=== PATIENT | male | born 1935 | race African-American/Black ===

== ENCOUNTER 2025-01-21 09:04 | Inpatient (IN) | payer BC, MEDICAID, MEDICARE ==
[~2025-01-21] VITALS: Ht 167.6 cm; Wt 63.0 kg
[2025-01-21] MEDS: SODIUM CHLORIDE 0.9% (SEPSIS BOLUS) IV ONE (09:32)
[2025-01-21] MEDS: CEFTRIAXONE 1GM/50ML 50 ML IV ONE (09:38)
[2025-01-21 09:55] LABS: HEMATOCRIT. 39.8 % (42.0-52.0); HEMOGLOBIN. 12.9 g/dL (14.0-18.0); MEAN PLATELET VOLUME 9.3 fl (7.4-10.4); PLATELET 381 x1000/uL (130-400); RED BLOOD CELL COUNT 4.14 mill/uL (4.7-6.1); RED CELL DISTRIBUTION WIDTH 14.1 % (11.6-14.6)
[2025-01-21 10:04] LABS: INR 1.1
[2025-01-21 10:12] LABS: ASPARTATE AMINOTRANSFERASE 9 IU/L (<34); BILIRUBIN DIRECT 0.2 mg/dL (<=3.0); BILIRUBIN TOTAL 0.4 mg/dL (0.1-1.0); PROTEIN TOTAL 7.0 g/dL (6.0-8.3)
[2025-01-21 10:39] LABS: TROPONIN I HIGH SENSITIVITY 69 ng/L (3.0-53)
[2025-01-21 10:41] LABS: UREA NITROGEN BLOOD 125 mg/dL (9-23)
[2025-01-21 10:42] LABS: CREATININE 7.4 mg/dL (0.6-1.3)
[2025-01-21 10:50] LABS: BAND% 5.0 % (1.0-6.0); LYMPHOCYTES % MANUAL 12.0 % (20.0-50.0); MONOCYTES % MANUAL 11.0 % (2.0-8.0); NEUTROPHILS % MANUAL 72.0 % (45.0-75.0); PLATELET ESTIMATE NORMAL
[2025-01-21] MEDS: CLOPIDOGREL 75MG TABLET PO ONE (11:20)
[2025-01-21] MEDS: ASPIRIN 325MG EC TABLET PO ONE (11:20)
[2025-01-21] MEDS ORDERED: HEPARIN 5000 UNITS/ML VIAL IV PRN ×2 (11:45)
[2025-01-21] MEDS ORDERED: HEPARIN 25,000 UNITS PREMIX 250 ML IV PRN (11:45)
[2025-01-21] MEDS: ONDANSETRON HCL 4MG/2ML INJ IV ONE (12:30)
[2025-01-21] MEDS: HEPARIN 60 UNITS/KG BOLUS IV SCH (13:00)
[2025-01-21] MEDS: HEPARIN 5000 UNITS/ML VIAL IV SCH (13:27)
[2025-01-21] MEDS: IOHEXOL-350 100 ML BOTTLE ONE (13:46)
[2025-01-21] MEDS: HEPARIN 25,000 UNITS PREMIX 250 ML IV SCH (13:46)
[2025-01-21 15:57] LABS: CLARITY URINE CLEAR (CLEAR); COLOR URINE YELLOW (YELLOW); GLUCOSE URINE NEGATIVE (NEGATIVE); KETONES URINE NEGATIVE (NEGATIVE); PH URINE 5.0 (4.5-8.0); PROTEIN URINE 1+ (NEGATIVE); SPECIFIC GRAVITY URINE 1.023 (1.005-1.030)
[2025-01-21 15:58] LABS: LEUKOCYTE ESTERASE URINE NEGATIVE (NEGATIVE); NITRITE URINE NEGATIVE (NEGATIVE); OCCULT BLOOD URINE TRACE (NEGATIVE); UROBILINOGEN URINE 0.2 E.U./dL (0.2-1.0); WBC URINE 0-2 /hpf (0-2)
[2025-01-21 15:59] LABS: BACTERIA URINE RARE; SQUAMOUS EPITHELIAL CELL URINE RARE /lpf (RARE/1+)
[2025-01-21] MEDS ORDERED: HEPARIN BOLUS PRN aPTT <30 IV (19:00)
[2025-01-21] MEDS ORDERED: HEPARIN BOLUS PRN aPTT 30-44 IV (19:00)
[2025-01-21] MEDS ORDERED: HEPARIN 25,000 UNITS in DEXT 5% WATER 245 ML IV SCH (23:00)
[2025-01-21] MEDS: ONDANSETRON HCL 4MG/2ML INJ IV PRN (23:13)
[2025-01-21] MEDS: MORPHINE SULFATE 4 MG/ML INJ (FOR IV/IM USE) IV PRN (23:14)
[2025-01-21] MEDS: SODIUM CHLORIDE 0.9% 1,000 ML IV SCH (23:25)
[2025-01-22] VITALS (7 sets, daily range): BP systolic 105–125; BP diastolic 56–65; PULSE 77–95; RESP 16–20; TEMP 36.1–36.6; O2SAT 93–99
[2025-01-22 06:12] LABS: HEMATOCRIT. 38.9 % (42.0-52.0); HEMOGLOBIN. 12.7 g/dL (14.0-18.0); MEAN PLATELET VOLUME 9.5 fl (7.4-10.4); PLATELET 378 x1000/uL (130-400); RED BLOOD CELL COUNT 4.06 mill/uL (4.7-6.1); RED CELL DISTRIBUTION WIDTH 14.0 % (11.6-14.6)
[2025-01-22 06:34] LABS: CREATININE 6.9 mg/dL (0.6-1.3); UREA NITROGEN BLOOD 132.0 mg/dL (9-23)
[2025-01-22] MEDS: PANTOPRAZOLE 40MG DR TABLET PO SCH (07:40)
[2025-01-22] MEDS ORDERED: CEFEPIME 1GM IN DEXT 5% 50ML IV SCH (17:15)
[2025-01-22] MEDS: METRONIDAZOLE 500 MG PREMIX 100 ML IV SCH (18:30)
[2025-01-22] MEDS: DEXT 5%/0.9% NACL 1,000 ML IV SCH (19:38)
[2025-01-22] MEDS: CEFEPIME 1GM PREMIX 50ML IV SCH (19:49)
[2025-01-22 21:09] LABS: LYMPHOCYTES % MANUAL 5.0 % (20.0-50.0); MONOCYTES % MANUAL 8.0 % (2.0-8.0); NEUTROPHILS % MANUAL 87.0 % (45.0-75.0); PLATELET ESTIMATE NORMAL
[2025-01-23 00:08] VITALS: BP 102/53; PULSE 86; RESP 18; TEMP 36.1; O2SAT 96
[2025-01-23 03:59] VITALS: BP 102/53; PULSE 90; RESP 18; TEMP 36.2; O2SAT 90
[2025-01-23 07:52] VITALS: BP 125/67; PULSE 89; RESP 20; TEMP 36.1; O2SAT 97
[2025-01-23] MEDS: PANTOPRAZOLE SODIUM 40 MG/VIAL IV SCH (08:37)
[2025-01-23 12:08] VITALS: BP 107/56; PULSE 86; RESP 19; TEMP 36.2; O2SAT 99
[2025-01-23 15:53] VITALS: BP 103/61; PULSE 91; RESP 19; TEMP 36.1; O2SAT 99
[2025-01-23 20:00] VITALS: BP 102/56; PULSE 90; RESP 18; TEMP 36.5; O2SAT 95
[2025-01-24] VITALS: BP 125/68; PULSE 77; RESP 18; TEMP 36.6; O2SAT 97
[2025-01-24 04:00] VITALS: BP 98/59; PULSE 87; RESP 17; TEMP 36.1; O2SAT 96
[2025-01-24 08:08] VITALS: BP 133/58; PULSE 84; RESP 18; TEMP 35.7; O2SAT 100
[2025-01-24 08:29] LABS: HEMATOCRIT. 35.2 % (42.0-52.0); HEMOGLOBIN. 11.4 g/dL (14.0-18.0); MEAN PLATELET VOLUME 9.3 fl (7.4-10.4); PLATELET 337 x1000/uL (130-400); RED BLOOD CELL COUNT 3.66 mill/uL (4.7-6.1); RED CELL DISTRIBUTION WIDTH 14.4 % (11.6-14.6)
[2025-01-24] MEDS ORDERED: LIDOCAINE HCL 1% 10 MG/ML 10ML VIAL ONE (08:35)
[2025-01-24 12:04] VITALS: BP 144/63; PULSE 70; RESP 19; TEMP 36.2; O2SAT 100
[2025-01-24 13:01] LABS: CREATININE 4.8 mg/dL (0.6-1.3); UREA NITROGEN BLOOD 135.0 mg/dL (9-23)
[2025-01-24 15:49] VITALS: BP 115/68; PULSE 84; RESP 20; TEMP 36.2; O2SAT 100
[2025-01-24 20:00] VITALS: BP 142/86; PULSE 101; RESP 20; TEMP 36.2; O2SAT 98
[2025-01-25 00:10] VITALS: BP 129/71; PULSE 82; RESP 20; TEMP 36.3; O2SAT 98
[2025-01-25 04:00] VITALS: BP 133/85; PULSE 90; RESP 20; TEMP 36; O2SAT 97
[2025-01-25 08:01] VITALS: BP 131/83; PULSE 99; RESP 18; TEMP 36.2; O2SAT 98
[2025-01-25 12:00] VITALS: BP 133/75; PULSE 97; RESP 15; TEMP 36.1; O2SAT 98
[2025-01-25 16:00] VITALS: BP 147/62; PULSE 93; RESP 17; TEMP 36.2; O2SAT 99
[2025-01-25 16:50] LABS: LYMPHOCYTES % MANUAL 14.0 % (20.0-50.0); MONOCYTES % MANUAL 8.0 % (2.0-8.0); NEUTROPHILS % MANUAL 78.0 % (45.0-75.0); PLATELET ESTIMATE NORMAL
[2025-01-25 17:21] LABS: CREATININE 3.3 mg/dL (0.6-1.3); UREA NITROGEN BLOOD 104.0 mg/dL (9-23)
[2025-01-25] MEDS: DEXTROSE 5% WATER 1,000 ML IV SCH (17:50)
[2025-01-25 20:00] VITALS: BP 131/76; PULSE 95; RESP 20; TEMP 36.2; O2SAT 97
[2025-01-26] VITALS: BP 133/102; PULSE 105; RESP 20; TEMP 36.6; O2SAT 97
[2025-01-26 04:00] VITALS: BP 142/77; PULSE 101; RESP 20; TEMP 36.3; O2SAT 96
[2025-01-26 08:00] VITALS: BP 122/78; PULSE 98; RESP 20; TEMP 30.6; O2SAT 100
[2025-01-26 12:00] VITALS: BP 127/77; PULSE 97; RESP 18; TEMP 36.1; O2SAT 99
[2025-01-26 16:00] VITALS: BP 130/75; PULSE 97; RESP 20; TEMP 36.1; O2SAT 100
[2025-01-26 20:04] VITALS: BP 125/90; PULSE 95; RESP 18; TEMP 36.2; O2SAT 99
[2025-01-27 00:14] VITALS: BP 103/69; PULSE 106; RESP 18; TEMP 36.2; O2SAT 96
[2025-01-27] MEDS: METOCLOPRAMIDE HCL 10MG/2ML VIAL IV NR (03:08)
[2025-01-27 04:31] VITALS: BP 119/75; PULSE 105; RESP 18; TEMP 36.4; O2SAT 95
[2025-01-27 08:00] VITALS: BP 136/69; PULSE 69; RESP 18; TEMP 36.6; O2SAT 98
[2025-01-27 08:21] LABS: HEMATOCRIT. 35.8 % (42.0-52.0); HEMOGLOBIN. 11.0 g/dL (14.0-18.0); MEAN PLATELET VOLUME 9.1 fl (7.4-10.4); PLATELET 277 x1000/uL (130-400); RED BLOOD CELL COUNT 3.58 mill/uL (4.7-6.1); RED CELL DISTRIBUTION WIDTH 15.1 % (11.6-14.6)
[2025-01-27 08:41] LABS: CREATININE 2.6 mg/dL (0.6-1.3); UREA NITROGEN BLOOD 61.0 mg/dL (9-23)
[2025-01-27] MEDS: KCL 20MEQ/100ML PREMIX 100 ML IV SCH (11:35)
[2025-01-27 12:00] VITALS: BP 102/67; PULSE 99; RESP 18; TEMP 36.7; O2SAT 98
[2025-01-27 16:00] VITALS: BP 130/95; PULSE 89; RESP 18; TEMP 36.1; O2SAT 100
[2025-01-27 20:00] VITALS: BP 113/65; PULSE 104; RESP 18; TEMP 36.8; O2SAT 95
[2025-01-28] VITALS: BP 118/62; PULSE 100; RESP 18; TEMP 36.9; O2SAT 96
[2025-01-28 04:00] VITALS: BP 123/72; PULSE 100; RESP 20; TEMP 36.9; O2SAT 98
[2025-01-28 07:46] VITALS: BP 108/68; PULSE 94; RESP 20; TEMP 36.3; O2SAT 96
[2025-01-28 11:56] VITALS: BP 100/51; PULSE 89; RESP 18; TEMP 36.3; O2SAT 95
[2025-01-28 12:53] LABS: LYMPHOCYTES % MANUAL 2.0 % (20.0-50.0); MONOCYTES % MANUAL 5.0 % (2.0-8.0); NEUTROPHILS % MANUAL 93.0 % (45.0-75.0)
[2025-01-28 12:54] LABS: PLATELET ESTIMATE NORMAL
[2025-01-28 13:10] LABS: HEMATOCRIT. 38.0 % (42.0-52.0); HEMOGLOBIN. 11.9 g/dL (14.0-18.0); MEAN PLATELET VOLUME 9.2 fl (7.4-10.4); PLATELET 181 x1000/uL (130-400); RED BLOOD CELL COUNT 3.87 mill/uL (4.7-6.1); RED CELL DISTRIBUTION WIDTH 15.5 % (11.6-14.6)
[2025-01-28 13:42] LABS: CREATININE 2.6 mg/dL (0.6-1.3); UREA NITROGEN BLOOD 99.0 mg/dL (9-23)
[2025-01-28] MEDS: POTASSIUM CHLORIDE 40 MEQ in DEXTROSE 5% WATER 980 ML IV SCH (14:31)
[2025-01-28 16:11] VITALS: BP 113/72; PULSE 95; RESP 19; TEMP 36.1; O2SAT 95
[2025-01-28] MEDS: KCL 10MEQ/50ML PREMIX 50 ML IV SCH (16:49)
[2025-01-28 20:00] VITALS: BP 118/70; PULSE 97; RESP 19; TEMP 36.4; O2SAT 92
[2025-01-28 20:13] LABS: LYMPHOCYTES % MANUAL 4.0 % (20.0-50.0); MONOCYTES % MANUAL 7.0 % (2.0-8.0); NEUTROPHILS % MANUAL 89.0 % (45.0-75.0)
[2025-01-28 20:14] LABS: PLATELET ESTIMATE NORMAL
[2025-01-29] VITALS: BP 89/60; PULSE 64; RESP 17; TEMP 36.2; O2SAT 95
[2025-01-29 04:00] VITALS: BP 90/49; PULSE 69; RESP 17; TEMP 36.8; O2SAT 96
[2025-01-29 05:44] LABS: HEMATOCRIT. 35.6 % (42.0-52.0); HEMOGLOBIN. 11.4 g/dL (14.0-18.0); MEAN PLATELET VOLUME 9.1 fl (7.4-10.4); PLATELET 173 x1000/uL (130-400); RED BLOOD CELL COUNT 3.70 mill/uL (4.7-6.1); RED CELL DISTRIBUTION WIDTH 14.9 % (11.6-14.6)
[2025-01-29 05:54] LABS: CREATININE 2.5 mg/dL (0.6-1.3)
[2025-01-29 06:27] LABS: UREA NITROGEN BLOOD 108.0 mg/dL (9-23)
[2025-01-29 07:42] VITALS: BP 131/74; PULSE 87; RESP 18; TEMP 36.1; O2SAT 94
[2025-01-29] MEDS: KCL 10MEQ/50ML PREMIX 50 ML IV SCH (09:37)
[2025-01-29 11:35] VITALS: BP 112/67; PULSE 82; RESP 20; TEMP 36.3; O2SAT 94
[2025-01-29 15:51] VITALS: BP 117/67; PULSE 86; RESP 19; TEMP 36.1; O2SAT 93
[2025-01-29 17:19] LABS: LYMPHOCYTES % MANUAL 3.0 % (20.0-50.0); MONOCYTES % MANUAL 8.0 % (2.0-8.0); NEUTROPHILS % MANUAL 89.0 % (45.0-75.0); PLATELET ESTIMATE NORMAL
[2025-01-29 20:00] VITALS: BP 109/41; PULSE 84; RESP 20; TEMP 36.6; O2SAT 94
[2025-01-29] MEDS ORDERED: CEFAZOLIN 1000MG PREMIX 50 ML IV SCH (20:20)
[2025-01-29] MEDS: PIPERACILLIN/TAZO 3.375G/50ML 50 ML IV SCH (21:48)
[2025-01-30] VITALS: BP 131/43; PULSE 91; RESP 19; TEMP 35.6; O2SAT 95
[2025-01-30 04:00] VITALS: BP 118/69; PULSE 70; RESP 18; TEMP 35.7; O2SAT 96
[2025-01-30 06:52] LABS: HEMATOCRIT. 34.5 % (42.0-52.0); HEMOGLOBIN. 11.0 g/dL (14.0-18.0); MEAN PLATELET VOLUME 9.8 fl (7.4-10.4); PLATELET 157 x1000/uL (130-400); RED BLOOD CELL COUNT 3.53 mill/uL (4.7-6.1); RED CELL DISTRIBUTION WIDTH 15.3 % (11.6-14.6)
[2025-01-30 06:54] LABS: CREATININE 2.8 mg/dL (0.6-1.3)
[2025-01-30 06:55] LABS: ASPARTATE AMINOTRANSFERASE 26 IU/L (<34)
[2025-01-30 06:56] LABS: BILIRUBIN TOTAL 0.4 mg/dL (0.1-1.0); PROTEIN TOTAL 5.9 g/dL (6.0-8.3)
[2025-01-30 07:25] LABS: INR 1.5
[2025-01-30 07:36] VITALS: BP 114/63; PULSE 79; RESP 18; TEMP 36.1; O2SAT 93
[2025-01-30 07:48] LABS: UREA NITROGEN BLOOD 102 mg/dL (9-23)
[2025-01-30 12:00] VITALS: BP 100/64; PULSE 70; RESP 18; TEMP 36.1; O2SAT 92
[2025-01-30 15:29] VITALS: BP 124/62; PULSE 77; RESP 20; TEMP 35.8; O2SAT 99
[2025-01-30 16:54] LABS: EOSINOPHILS % MANUAL 2.0 % (0.0-5.0); LYMPHOCYTES % MANUAL 8.0 % (20.0-50.0); MONOCYTES % MANUAL 6.0 % (2.0-8.0); NEUTROPHILS % MANUAL 84.0 % (45.0-75.0); PLATELET ESTIMATE NORMAL
[2025-01-30 19:25] LABS: CREATININE 3.0 mg/dL (0.6-1.3)
[2025-01-30 20:00] VITALS: BP_SYST 115; BP_DIAS 5; BP_DIAS 65; PULSE 79; RESP 18; TEMP 36; O2SAT 99
[2025-01-30 20:04] LABS: UREA NITROGEN BLOOD 108.0 mg/dL (9-23)
[2025-01-31] VITALS: BP 107/49; PULSE 72; RESP 18; TEMP 35.6; O2SAT 96
[2025-01-31 04:00] VITALS: BP 91/61; PULSE 75; RESP 20; TEMP 36.6; O2SAT 96
[2025-01-31 08:00] VITALS: BP 107/67; PULSE 74; RESP 16; TEMP 37; O2SAT 95
[2025-01-31] MEDS ORDERED: PROPOFOL 200MG/20ML VIAL IV ONE (08:00)
[2025-01-31 08:51] LABS: INR 1.5
[2025-01-31 09:10] LABS: HEMATOCRIT. 33.4 % (42.0-52.0); HEMOGLOBIN. 10.8 g/dL (14.0-18.0); MEAN PLATELET VOLUME 10.1 fl (7.4-10.4); PLATELET 131 x1000/uL (130-400); RED BLOOD CELL COUNT 3.50 mill/uL (4.7-6.1); RED CELL DISTRIBUTION WIDTH 15.0 % (11.6-14.6)
[2025-01-31 09:53] LABS: CREATININE 3.2 mg/dL (0.6-1.3)
[2025-01-31 10:01] LABS: UREA NITROGEN BLOOD 128.0 mg/dL (9-23)
[2025-01-31 12:00] VITALS: BP 104/74; PULSE 64; RESP 17; TEMP 36.7; O2SAT 91
[2025-01-31 16:00] VITALS: BP 107/49; PULSE 93; RESP 18; TEMP 36.7; O2SAT 93
[2025-01-31 20:00] VITALS: BP 100/45; PULSE 67; RESP 18; TEMP 36; O2SAT 93
[2025-01-31 21:24] LABS: EOSINOPHILS % MANUAL 1.0 % (0.0-5.0); LYMPHOCYTES % MANUAL 6.0 % (20.0-50.0); MONOCYTES % MANUAL 4.0 % (2.0-8.0); NEUTROPHILS % MANUAL 89.0 % (45.0-75.0); PLATELET ESTIMATE NORMAL
[2025-02-01] VITALS (60 sets, daily range): BP systolic 37–155; BP diastolic 23–96; PULSE 48–120; RESP 18–34; TEMP 36–36.8; O2SAT 93–100
[2025-02-01] MEDS: SODIUM CHLORIDE 0.9% 1,000 ML IV ONE (00:50)
[2025-02-01] MEDS: LORAZEPAM 2MG/ML UD SYRINGE IV PRN (02:09)
[2025-02-01 06:40] LABS: HEMATOCRIT. 33.3 % (42.0-52.0); HEMOGLOBIN. 10.6 g/dL (14.0-18.0); MEAN PLATELET VOLUME 10.1 fl (7.4-10.4); PLATELET 99 x1000/uL (130-400); RED BLOOD CELL COUNT 3.42 mill/uL (4.7-6.1); RED CELL DISTRIBUTION WIDTH 15.2 % (11.6-14.6)
[2025-02-01 07:35] LABS: CREATININE 3.4 mg/dL (0.6-1.3); UREA NITROGEN BLOOD 94.0 mg/dL (9-23)
[2025-02-01 10:08] LABS: PROSTATE SPECIFIC AG TOTAL 6.1 ng/mL (0.0-4.0)
[2025-02-01 13:08] LABS: ALPHA FETOPROTEIN TUMOR MARKER 4.3 ng/mL (0.0-6.4); CA 19-9 15.0 U/mL (0-35); CARCINOEMBRYONIC AG - SEND OUT 1.7 ng/mL (0.0-4.7)
[2025-02-01 13:14] LABS: INR 1.6
[2025-02-01 13:18] LABS: HEMATOCRIT. 36.4 % (42.0-52.0); HEMOGLOBIN. 11.4 g/dL (14.0-18.0); MEAN PLATELET VOLUME 10.5 fl (7.4-10.4); PLATELET 102 x1000/uL (130-400); RED BLOOD CELL COUNT 3.69 mill/uL (4.7-6.1); RED CELL DISTRIBUTION WIDTH 15.8 % (11.6-14.6)
[2025-02-01 13:23] LABS: ASPARTATE AMINOTRANSFERASE 54 IU/L (<34)
[2025-02-01 13:24] LABS: BILIRUBIN DIRECT 0.2 mg/dL (<=3.0); BILIRUBIN TOTAL 0.4 mg/dL (0.1-1.0); PROTEIN TOTAL 5.2 g/dL (6.0-8.3)
[2025-02-01 13:40] LABS: BG BASE EXCESS -7.0 mmol/L (-2.0-3.0); BG CARBOXYHEMOGLOBIN 0.1 % (0.5-1.5); BG DEOXYHEMOGLOBIN 14.5 % (0.0-5.0); BG FRACTION INSPIRED OXYGEN 100; BG HCO3 ACT 20.3 mmol/L (21.0-28.0); BG METHEMOGLOBIN 0.3 % (0.5-1.5); BG OXYGEN SATURATION 85.4 % (94.0-98.0); BG OXYHEMOGLOBIN 85.1 % (94.0-98.0); BG PCO2 47.8 mmHg (35.0-48.0); BG PEEP (cmH2O) 5.0 cmH2O; BG PH 7.245 (7.350-7.450); BG PO2 59.1 mmHg (83.0-108.0); BG SAMPLE SITE RIGHT RADIAL; BG TIDAL VOLUME(mL) 400.0 mL; BG TOTAL HEMOGLOBIN 12.7 g/dL (13.5-17.5); BG VENT MODE VENT - AC; BG VENT RATE 22.0 set
[2025-02-01] MEDS: DEXTROSE 5% WATER 1,000 ML IV SCH (14:34)
[2025-02-01] MEDS: PHYTONADIONE 10MG/ML INJ SUBCUT SCH (14:35)
[2025-02-01] MEDS: SODIUM BICARBONATE 8.4% 50MEQ/50ML SYR IV SCH (14:35)
[2025-02-01 15:43] LABS: EOSINOPHILS % MANUAL 2.0 % (0.0-5.0); LYMPHOCYTES % MANUAL 2.0 % (20.0-50.0); MONOCYTES % MANUAL 1.0 % (2.0-8.0); NEUTROPHILS % MANUAL 95.0 % (45.0-75.0); PLATELET ESTIMATE SLIGHTLY DECREASED
[2025-02-01 16:37] LABS: BG BASE EXCESS -0.7 mmol/L (-2.0-3.0); BG CARBOXYHEMOGLOBIN 0.3 % (0.5-1.5); BG DEOXYHEMOGLOBIN 7.7 % (0.0-5.0); BG FRACTION INSPIRED OXYGEN 100; BG HCO3 ACT 24.1 mmol/L (21.0-28.0); BG METHEMOGLOBIN 0.3 % (0.5-1.5); BG OXYGEN SATURATION 92.3 % (94.0-98.0); BG OXYHEMOGLOBIN 91.7 % (94.0-98.0); BG PCO2 40.2 mmHg (35.0-48.0); BG PEEP (cmH2O) 5.0 cmH2O; BG PH 7.396 (7.350-7.450); BG PO2 66.3 mmHg (83.0-108.0); BG SAMPLE SITE RIGHT RADIAL; BG TIDAL VOLUME(mL) 450.0 mL; BG TOTAL HEMOGLOBIN 11.6 g/dL (13.5-17.5); BG VENT MODE VENT - AC; BG VENT RATE 22.0 set
[2025-02-01 16:51] LABS: LYMPHOCYTES % MANUAL 5.0 % (20.0-50.0); MONOCYTES % MANUAL 3.0 % (2.0-8.0); NEUTROPHILS % MANUAL 92.0 % (45.0-75.0); PLATELET ESTIMATE SLIGHTLY DECREASED
[2025-02-01] MEDS: METOCLOPRAMIDE HCL 10MG/2ML VIAL IV SCH (17:55)
[2025-02-01] MEDS: FENTANYL 2500MCG/250ML PMX 250 ML IV PRN (20:40)
[2025-02-01] MEDS: NOREPINEPHRINE 8MG/250ML PMX 250 ML IV PRN (21:12)
[2025-02-01] MEDS: VANCOMYCIN 1.25GM/250ML IV SCH (21:56)
[2025-02-02] VITALS (114 sets, daily range): BP systolic 59–144; BP diastolic 29–106; PULSE 47–112; RESP 12–40; TEMP 30.1–36.8; O2SAT 83–100
[2025-02-02] MEDS: DEXMEDETOMIDINE 100 ML IV PRN (00:46)
[2025-02-02] MEDS: PHENYLEPHRINE 50 MG in DEXT 5% WATER 245 ML IV PRN (00:47)
[2025-02-02 05:40] LABS: PLATELET 58 x1000/uL (130-400); RED BLOOD CELL COUNT 3.56 mill/uL (4.7-6.1); RED CELL DISTRIBUTION WIDTH 15.8 % (11.6-14.6)
[2025-02-02 05:58] LABS: CREATININE 3.6 mg/dL (0.6-1.3)
[2025-02-02 06:04] LABS: UREA NITROGEN BLOOD 119.0 mg/dL (9-23)
[2025-02-02 11:43] LABS: BG BASE EXCESS -7.0 mmol/L (-2.0-3.0); BG CARBOXYHEMOGLOBIN 0.8 % (0.5-1.5); BG DEOXYHEMOGLOBIN 10.7 % (0.0-5.0); BG FRACTION INSPIRED OXYGEN 60; BG HCO3 ACT 17.3 mmol/L (21.0-28.0); BG METHEMOGLOBIN 0.3 % (0.5-1.5); BG OXYGEN SATURATION 89.2 % (94.0-98.0); BG OXYHEMOGLOBIN 88.2 % (94.0-98.0); BG PCO2 30.8 mmHg (35.0-48.0); BG PEEP (cmH2O) 5.0 cmH2O; BG PH 7.368 (7.350-7.450); BG PO2 57.2 mmHg (83.0-108.0); BG SAMPLE SITE RIGHT FEMORAL; BG TIDAL VOLUME(mL) 450.0 mL; BG TOTAL HEMOGLOBIN 10.8 g/dL (13.5-17.5); BG VENT MODE VENT - AC; BG VENT RATE 22.0 set
[2025-02-02 12:40] LABS: INR 1.5
[2025-02-02] MEDS: VASOPRESSIN 20 UNIT in SODIUM CHLORIDE 0.9% 99 ML IV PRN (15:18)
[2025-02-02] MEDS: NOREPINEPHRINE 32 MG in DEXT 5% WATER 218 ML IV PRN (16:11)
[2025-02-02] MEDS: EPINEPHRINE 5 MG in SODIUM CHLORIDE 0.9% 245 ML IV PRN (16:17)
[2025-02-02] MEDS: MEROPENEM 500MG/50ML 50 ML IV SCH (17:06)
[2025-02-02] MEDS ORDERED: DOPAMINE 400MG/250ML PREMIX 250 ML IV PRN (19:00)
[2025-02-02] MEDS: EPINEPHRINE 10 MG in SODIUM CHLORIDE 0.9% 240 ML IV PRN (20:54)
[2025-02-02] MEDS: DOPAMINE 800MG PREMIX (DOUBLE) 250 ML IV PRN (23:02)
[2025-02-03] VITALS (59 sets, daily range): BP systolic 70–115; BP diastolic 11–76; PULSE 0–109; RESP 0–63; TEMP 34.3–36.3; O2SAT 62–100
[2025-02-03] MEDS: HYDROCORTISONE SOD SUCCINATE 100 MG/2 ML VIAL IV SCH (00:02)
[2025-02-03] MEDS: PHENYLEPHRINE 100 MG in DEXT 5% WATER 240 ML IV PRN (01:13)
[2025-02-03] MEDS: EPINEPHRINE 20 MG in SODIUM CHLORIDE 0.9% 480 ML IV PRN (05:53)
[2025-02-03 06:03] LABS: INR 2.7
[2025-02-03 09:33] LABS: BG BASE EXCESS -27.9 mmol/L (-2.0-3.0); BG CARBOXYHEMOGLOBIN 1.1 % (0.5-1.5); BG DEOXYHEMOGLOBIN 1.3 % (0.0-5.0); BG FRACTION INSPIRED OXYGEN 100; BG HCO3 ACT 3.7 mmol/L (21.0-28.0); BG METHEMOGLOBIN 0.2 % (0.5-1.5); BG OXYGEN SATURATION 98.7 % (94.0-98.0); BG OXYHEMOGLOBIN 97.4 % (94.0-98.0); BG PCO2 21.2 mmHg (35.0-48.0); BG PEEP (cmH2O) 5.0 cmH2O; BG PH 6.857 (7.350-7.450); BG PO2 222.1 mmHg (83.0-108.0); BG SAMPLE SITE LEFT FEMORAL; BG TIDAL VOLUME(mL) 450.0 mL; BG TOTAL HEMOGLOBIN 7.5 g/dL (13.5-17.5); BG VENT MODE VENT - AC; BG VENT RATE 22.0 set
[2025-02-03] MEDS: SODIUM BICARBONATE 8.4% 50MEQ/50ML SYR IV NR (10:07)
[2025-02-03] MEDS: DEXTROSE 5% WATER 1,000 ML IV SCH (10:26)
[2025-02-03 12:32] LABS: HEMATOCRIT. 47.7 % (42.0-52.0); HEMOGLOBIN. 11.2 g/dL (14.0-18.0); MEAN PLATELET VOLUME 11.6 fl (7.4-10.4); RED BLOOD CELL COUNT 3.69 mill/uL (4.7-6.1); RED CELL DISTRIBUTION WIDTH 18.5 % (11.6-14.6)
[2025-02-03 12:33] LABS: CREATININE 4.1 mg/dL (0.6-1.3)
[2025-02-03 12:34] LABS: UREA NITROGEN BLOOD 98 mg/dL (9-23)
[2025-02-03 12:35] LABS: BILIRUBIN DIRECT 0.5 mg/dL (<=3.0)
[2025-02-03 12:36] LABS: BILIRUBIN TOTAL 0.8 mg/dL (0.1-1.0); PROTEIN TOTAL 4.8 g/dL (6.0-8.3)
[2025-02-03 12:47] LABS: ASPARTATE AMINOTRANSFERASE 2218 IU/L (<34)
[2025-02-03] MEDS ORDERED: DEXTROSE 50% WATER 50ML SYRINGE IV ONE (12:53)
[2025-02-03 13:38] LABS: PLATELET 27 x1000/uL (130-400)
[2025-02-03 14:35] LABS: PHOSPHORUS 19.6 mg/dL (2.5-4.9)
[2025-02-04 09:28] LABS: BAND% 33.0 % (1.0-6.0); EOSINOPHILS % MANUAL 1.0 % (0.0-5.0); LYMPHOCYTES % MANUAL 9.0 % (20.0-50.0); MYELOCYTES % 3.0 % (0-0); NEUTROPHILS % MANUAL 54.0 % (45.0-75.0); NUCLEATED RED BLOOD CELLS 5 /100 WBC; PLATELET ESTIMATE MARKEDLY DECREASED
== END 2025-02-03 13:02 | DRG 871 ==
LOC: ER 09:34 → 7WST 11:42 → CANRESERV 16:20 → ENRESERV 16:20 → EDBEDREQSVC 17:14 → ENRESERV 21:41 → CMPBEDREQ 01-22 10:08 → MICUSO 02-01 08:38
PROVIDERS: ADMIT Internal Medicine; ATTEND Internal Medicine
PROC: 02HV33Z Insertion of Infusion Device into Superior Vena Cava, Percutaneous Approach (ICD-10-PCS; 2025-01-24)
PROC: B548ZZA Ultrasonography of Superior Vena Cava, Guidance (ICD-10-PCS; 2025-01-24)
PROC: 5A12012 Performance of Cardiac Output, Single, Manual (ICD-10-PCS; principal; 2025-02-01)
PROC: 02HV33Z Insertion of Infusion Device into Superior Vena Cava, Percutaneous Approach (ICD-10-PCS; 2025-02-01)
PROC: B548ZZA Ultrasonography of Superior Vena Cava, Guidance (ICD-10-PCS; 2025-02-01)
PROC: 5A1945Z Respiratory Ventilation, 24-96 Consecutive Hours (ICD-10-PCS; 2025-02-01)
PROC: 0BH17EZ Insertion of Endotracheal Airway into Trachea, Via Natural or Artificial Opening (ICD-10-PCS; 2025-02-01)
PROC: 0W9B3ZZ Drainage of Left Pleural Cavity, Percutaneous Approach (ICD-10-PCS; 2025-02-02)
PROC: 5A12012 Performance of Cardiac Output, Single, Manual (ICD-10-PCS; 2025-02-03)
DX: A41.9 Sepsis, unspecified organism (principal); J96.01 Acute respiratory failure with hypoxia; E87.4 Mixed disorder of acid-base balance; J90 Pleural effusion, not elsewhere classified; R18.8 Other ascites; R13.10 Dysphagia, unspecified; N17.9 Acute kidney failure, unspecified; I46.9 Cardiac arrest, cause unspecified; N18.9 Chronic kidney disease, unspecified; E11.22 Type 2 diabetes mellitus with diabetic chronic kidney disease; K76.9 Liver disease, unspecified; Z68.30 Body mass index [BMI] 30.0-30.9, adult; I70.201 Unspecified atherosclerosis of native arteries of extremities, right leg; E87.0 Hyperosmolality and hypernatremia; N13.30 Unspecified hydronephrosis; K22.9 Disease of esophagus, unspecified; E87.6 Hypokalemia; R62.7 Adult failure to thrive; E11.51 Type 2 diabetes mellitus with diabetic peripheral angiopathy without gangrene; S51.812A Laceration without foreign body of left forearm, initial encounter; R97.20 Elevated prostate specific antigen [PSA]; Z68.22 Body mass index [BMI] 22.0-22.9, adult; X58.XXXA Exposure to other specified factors, initial encounter; Y93.89 Activity, other specified; Y92.89 Other specified places as the place of occurrence of the external cause; Y99.8 Other external cause status
CPT/HCPCS: 31500; 31720; 32555; 36415; 36573; 36600; 71045; 71275; 74018; 74174; 76770; 80048; 80053; 80076; 80202; 81003; 82105; 82375; 82378; 82805; 82962; 83605; 83735; 84100; 84134; 84145; 84153; 84484; 85014; 85018; 85025; 85027; 86301; 86850; 86900; 92610; 92950; 93005; 93306; 93923; 93970; 94002; 94003; 94070; 94664; 96365; 99291; A4606; C1725; J0690; J0692; J0696; J1265; J1644; J1720; J2003; J2060; J2185; J2270; J2371; J2405; J2470; J2543; J2704; J2765; J3010; J3373; J3430; J3480; J3490; J7030; J7042; J7050; J7060; J7070; Q9967